=== PATIENT | male | born 1955 | race Caucasian/White ===

== ENCOUNTER 2016-09-19 08:55 | Inpatient (IN) | payer BC ==
[2016-09-19] VITALS (10 sets, daily range): BP systolic 102–130; BP diastolic 70–94
[~2016-09-19] VITALS: Ht 193 cm; Wt 98.7 kg
--- NOTE | 2016-09-19 10:34 | DIAGNOSTIC IMAGING REPORT ---
PROCEDURE: XR CHEST 1 VIEW INDICATION: SHORTNESS OF BREATH TECHNIQUE: Portable AP view 09:25 a.m. COMPARISON: None. FINDINGS: There is cardiomegaly and pulmonary vascular congestion. IMPRESSION: 1. CHF.
--- NOTE | 2016-09-19 12:16 | ED CLINICAL REPORT ---
Clinical Report - Physicians/Mid Levels [facility] [address] [place] [place] [address] 09/19/2016 9:04 Patient: ASHLEY GUTIERREZ Time Seen: 09:04; initial patient contact. Arrived- By ambulance. Historian- patient. HISTORY OF PRESENT ILLNESS Chief Complaint: PALPITATIONS. This started about 2 months ago and is still present (worse since this AM). Onset during rest. History of caffeine use prior to onset. No history of decongestants use prior to onset, cocaine use prior to onset or amphetamine use prior to onset. It was gradual in onset. Modifying factors. Not worsened by anything. Not relieved by anything. It is described as a fast heart beat. He complains of weakness. No chest pain or discomfort. He has had mild difficulty breathing. 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 (Diltiazem 5 mg x 2 and ASA 325). Similar symptoms previously: Once. Recent medical care: Not recently seen/assessed. REVIEW OF SYSTEMS No orthopnea, nausea, vomiting, calf pain or chest pain. No cough. He has had difficulty breathing. All systems otherwise negative, except as recorded above. PAST HISTORY Elevated Cholesterol. Cardioversion 2008. Hypertension. Cardiac viral infx. ADDITIONAL SURGERIES: Left knee tendon. SOCIAL HISTORY Never smoker. Occasional alcohol use. No drug use. ADDITIONAL NOTES The nursing notes have been reviewed. PHYSICAL EXAM Vital Signs: 09/19/2016 08:53 BP: 119/97. HR: 90. RR: 15. O2 saturation: 91%. Temp: 97.6 F. Pain level now: 0/10. Have been reviewed. Hypertensive. Heart rate normal. Respiratory rate normal. Temperature normal. Oxygen saturation low. Appearance: Alert. Oriented X3. No acute distress. ENT: Pharynx normal. Neck: Normal inspection. No JVD. CVS: Abnormal rhythm, which is irregularly irregular. Heart sounds normal. Rate normal. Respiratory: No respiratory distress. Breath sounds normal. Abdomen: Soft and nontender. Bowel sounds normal. Skin: Skin warm and dry. Normal skin color. Extremities: No calf tenderness. No lower extremity edema. Neuro: Oriented X 3. LABS, X-RAYS, AND EKG EKG: EKG time: (0859). Atrial fibrillation (narrow-complex) (ventricular rate 84). Normal QRS complex. Normal axis. Normal ST and T waves, QT and QTc. Prior EKG unavailable. The study has been interpreted contemporaneously by me. The study has been independently viewed by me. The EKG appears to be a good tracing. Interpretation time: 0859. Chest X-ray: Congestive heart failure present. Vascular congestion present. Cardiomegaly. No infiltrate. Views: AP. Technique: good. The X-rays were independently viewed by me and interpreted contemporaneously by me. Prior films were not available for comparison. Laboratory Tests: CBC w Diff: ([facility]: 09/19/2016 09:18) ( MsgRcvd 09/19/2016 09:25) Final results Test Result Flag Units (Reference) WHITE BLOOD COUNT 6.9 K/uL (4.5-11.5) RED BLOOD COUNT 4.97 M/uL (4.50-5.90) HEMOGLOBIN 15.3 gm/dL (13.5-17.5) HEMATOCRIT 46.6 % (41.0-53.0) MEAN CELL VOLUME 94 fL (80-100) MEAN CORPUSCULAR HGB 31 pg (26-34) MEAN CORPUSCULAR HGB CONC 33 g/dL (31-37) RED CELL DISTRIBUTION WIDTH 13.5 % (11.6-14.8) PLATELET COUNT 263 K/uL (150-400) NEUTROPHIL % 62.1 % (50-75) LYMPH % 31.0 % (25-40) MONO % 4.3 % (3-14) EOSINOPHIL % 2.0 % (0-4) BASOPHIL % 0.6 % (0-2) PT with INR: ([facility]: 09/19/2016 09:18) ( MsgRcvd 09/19/2016 09:53) Final results Test Result Flag Units (Reference) INR 1.0 (0.8-1.2) Low Intensity Therapy: INR 1.5-2.0 PT range 18.5-23.1Mod.Intensity Therapy: INR 2.0-3.0 PT range 23.1-31.5High Intensity Therapy: INR 2.5-3.5 PT range 27.4-35.5High Intensity Therapy 2: INR 3.0-4.0 PT range 31.5-39.3 APTT 32 SECONDS (24-34) D-DIMER QUANTITATIVE < 0.27 L ug/mLFEU (0.27-0.52) The primary value of this quantitative assay relates toits negative predictive value (i.e. exclusion) of pulmonaryembolism/deep vein thrombosis/DIC.Elevated levels of d-dimer may also occur with:, age, cancer, inflammation, liver disease,post-op, infection, hematoma, coronary disease, peripheralarteriopathy, bleeding disorders and thrombolytic treatment.Results should be correlated with other clinical andradiological data.Testing Methodology: Latex Immunoassay BNP: ([facility]: 09/19/2016 09:18) ( [facility]) Final results Test Result Flag Units (Reference) B-TYPE NATRIURETIC PEPTIDE 173 H pg/ml (5-100) CHEM 13 PANEL: ([facility]: 09/19/2016 09:18) ( [facility]19[facility]2016 09:45) Final results Test Result Flag Units (Reference) GLUCOSE 130 H mg/dL (70-110) BUN 15 mg/dL (7-18) CREATININE 1.0 mg/dL (0.6-1.3) Estimated GFR >60 mL/min Estimated GFR- >60 mL/min Note: Persistent reduction over 3 months in eGFR<60 mL/min/1.73 m2 defines CKD. Patients with eGFR values>=60 mL/min/1.73 m2 may also have CKD if evidence ofpersistent proteinuria. Additional information may be foundat www.[email or web address].org. SODIUM 139 mmol/L (136-145) POTASSIUM 4.6 mmol/L (3.5-5.1) CHLORIDE 105 mmol/L (98-107) CARBON DIOXIDE 23 mmol/L (21-32) CALCIUM 8.1 L mg/dL (8.5-10.1) TOTAL PROTEIN 6.2 L g/dL (6.4-8.2) ALBUMIN 3.4 g/dL (3.3-5.0) BILIRUBIN, TOTAL 2.1 H mg/dL (0.0-1.0) ALKALINE PHOSPHATASE 86 U/L (46-116) AST (SGOT) 33 U/L (15-37) ALT (SGPT) 50 U/L (12-78) CPK 258 U/L (24-260) MAGNESIUM 1.9 mg/dL (1.8-2.4) TROPONIN I <0.05 ng/mL (0.00-1.5) TROPONIN REFERENCE RANGE:<0.1 NEGATIVE0.1-1.5 INDETERMINANT>1.5 POSITIVE . PROGRESS AND PROCEDURES Disposition: Observation in Acute Care. CLINICAL IMPRESSION ,paroxysmal atrial fibrillation. The patient has one or more high risk factors and/or two or more moderate risk factors for thromboembolism. The patient is not prescribed warfarin or another FDA approved anticoagulant because Has been in sinus rhythm since cardioversion. INSTRUCTIONS Follow-up: Blood pressure screening was not performed during this visit because the patient has an active diagnosis of hypertension. (Electronically signed by Jef Camp Dr. 09/19/2016 22:00)
--- NOTE | 2016-09-19 12:16 | ED NURSING NOTES ---
Clinical Report - Nurses [facility] [address] [place] [address] 09/19/2016 9:04 Patient: ASHLEY GUTIERREZ TRIAGE Triage time 08:50. Acuity: LEVEL 3. Chief Complaint: (Mild SOB onset 2 days ago, worse today on waking @0430. He was SOB, denies any other sx.). SEPSIS SCREEN: Sepsis Screen. Negative (no infection suspected/documented). ANGELI COMA SCORE: Angeli Coma Scale: 15- eyes open spontaneously (4); best verbal response- oriented x 4 (5); best motor response- obeys commands (6). --09:[address] R.N. 08:53 09/19/16. BP: 119/97 (regular adult cuff) taken on the left arm, while lying. HR: 90 (irregularly-irregular). RR: 15. O2 saturation: 91% on room air. Temp: 97.6 F (oral). Pain level now: 0/10. --09:[address] R[address] Weight: 96.1 kg stated. Height/Length: 69 inches Per Patient. BMI: 31.3. --09:[address] R[address] Medications Metoprolol Tartrate Oral (Tablet 50 mg) 1 tablet, daily. --09:[address] R.N. Spironolactone Oral (Tablet 25 mg) 1 tablet, daily. --09:[address] R.N. Aspirin Oral (Tablet 325 mg) 1 tablet, daily. --09:[address] R.N. Simvastatin Oral (Tablet 20 mg) 1 tablet, daily. --09:[address] R.N. Lisinopril Oral (Tablet 5 mg) 1 tablet, daily. --09:[address] R.N. The following entry was struck and corrected by Roderick Street R.N., 09:15 (09/19/16) Reason for correction - other(correction). <<STRICKEN ENTRY-- Simvastatin Oral. --09:[address] R.N. --END STRIKE>> The following entry was struck and corrected by Roderick Street R.N., 09:14 (09/19/16) Reason for correction - other(correction). <<STRICKEN ENTRY-- Spironolactone Oral. --09:[address] R.N. --END STRIKE>> The following entry was struck and corrected by Roderick Street R.N., 09:14 (09/19/16) Reason for correction - other(correction). [facility]-- Metoprolol Tartrate Oral. --09:[address] R.N. --END STRIKE>> The following entry was struck and corrected by Roderick Street R.N., 09:13 (09/19/16) Reason for correction - other(correction). <<[facility]-- Lisinopril Oral. --09:[address] R.N. --END STRIKE>> The following entry was struck and corrected by Roderick Street R.N., 09:13 (09/19/16) Reason for correction - other(correction). <<[facility]-- Aspirin Oral. --09:[address] R.N. --END STRIKE>>. Allergies No Known Drug Allergy. --09:[address] R[address]N. History Arrived by EMS, and ([facility] 46). Historian: patient. 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 Diltiazem 10mg IV and NS 500ml IV by medics.). SOCIAL HX: Never smoker. Occasional alcohol use. No drug use. ABUSE ASSESSMENT: No report of abuse. --09:[address] R.N. PROBLEMS: Elevated Cholesterol. Cardioversion 2008. Hypertension. Cardiac viral infx. --09:[address] R.N. ADDITIONAL SURGERIES: Left knee tendon. --09:[address] R[address] Interventions To treatment room. --09:[address] R[address]N. PHYSICAL ASSESSMENT late entry -08:55. To room via stretcher. GENERAL / NEURO / PSYCH: Alert. Oriented X 4. Appears in no acute distress. HEENT: Pupils equal, round and reactive to light. No facial asymmetry noted. Mucous membranes are pink. RESPIRATORY: Respirations not labored. Chest nontender. Breath sounds within normal limits. ( SOB has resolved after tx in the field). CVS: Cardiac rhythm: atrial fibrillation. Capillary refill less than 2 seconds. Pulses within normal limits. GI / : Abdomen soft and nontender and normal bowel sounds. SKIN: Skin intact. Skin is warm and dry. Normal skin turgor. --09:[address] R.N. NURSING PROGRESS NOTES 08:57 09/19/2016 Site #1 started prior to arrival by EMS via IV in the right antecubital space with an 18g angiocath. Saline lock flushed with 10 mL saline. --09:[address] R.N[address] late entry -09:04. payroll processor, pulse oximeter and NIBP monitor placed on patient; redye hand- Lead II and V1; monitor alarms on. Head of bed elevated. Reassurance given. Two patient identifiers checked. Call light placed in reach. Side rails up x 1. Bed placed in lowest position. Brakes of bed on. Patient ready for evaluation- chart flagged. --09:[address] R.N. 09:45 09/19/2016 Started bag #2 1000 mL IV Fluids IV NS (Saline); bolus of 1000 mL over 1 hour(s) via site #1 via IV pump. Allergies verified and confirmed 5 rights. IV patency established. IV site checked: no pain, redness, or swelling. IV flushed thoroughly pre- and post-medication administration. --09:[address] R.N. 09:15 09/19/16. BP: 116/83. HR: 87. RR: 21. O2 saturation: 96% on nasal cannula at 3 liters/minute. Pain level now: 0/10. --10:[address] R.N. late entry -10:00. Oxygen administered by nasal cannula at 3 liters. --10:[address] R.N. 09:45 09/19/16. BP: 110/75. HR: 89. RR: 19. O2 saturation: 98% on nasal cannula at 3 liters/minute. Pain level now: 0/10. --10:[address] R.N. 10:15 09/19/16. BP: 112/81. HR: 93. RR: 18. O2 saturation: 99% on nasal cannula at 3 liters/minute. Pain level now: 0/10. --10:[address] R.N. ( Pt ambulated to with walker (due to recent left leg injury).). --10:[address] R.N. Oxygen discontinued due to patient improvement (Spo2 97% on room air after ambulation). --10:[address] R.N. 11:05 09/19/2016 IV Fluids IV NS Discontinued: bag #2 completed. Total amount infused: 1000 mL. IV patency established. IV site checked: no pain, redness, or swelling. IV flushed thoroughly. --11:[address] R.N. 11:28 09/19/16. BP: 108/83. HR: 85. RR: 20. O2 saturation: 96% on room air. Pain level now: 0/10. --11:[address] R.N. 12:22 09/19/16. BP: 114/94. HR: 130 (irregularly-irregular). RR: 20. O2 saturation: 96% on room air. Pain level now: 0/10. Additional comments: after walking to the restroom. --12:[address] R.N. 12:09 09/19/2016 Metoprolol (Metoprolol Tartrate) IVP 2.5 mg given over 2 minute(s) via site #1. Allergies verified and confirmed 5 rights. IV patency established. IV site checked: no pain, redness, or swelling. IV flushed thoroughly pre- and post-medication administration. IVP given by RN. --12:[address] R.N. 12:29 09/19/16. ( H&P given to pt to fill out.). --12:29 Linda Rodriguez 12:45 09/19/16. BP: 111/70. HR: 109. RR: 21. O2 saturation: 97% on room air. Pain level now: 0/10. --13:[address] R.N. 13:15 09/19/16. BP: 113/82. HR: 112. RR: 19. O2 saturation: 97% on room air. Pain level now: 0/10. --13:[address] R.N. 13:45 09/19/16. BP: 110/74. HR: 106. RR: 17. O2 saturation: 97% on room air. Pain level now: 0/10. --13:[address] R.N. DISPOSITION / DISCHARGE ( Called ICU @1315 and 1400 to try to give report.). --14:[address] R.N. late entry -14:40. Departure time: 1435. Cardiac rhythm: atrial fibrillation. Condition at departure: improved and stable. Admitted to the Critical Care Unit (304). Report was given to a nurse via a phone call. Report included patient's care, treatment, medications, reviewed medication reconcilliation, and condition (including any recent changes or anticipated changes). All questions were answered. Report was acknowledged. ([id number]). --15:[address] R.N. 14:25 09/19/16. BP: 110/76. HR: 104. RR: 18. O2 saturation: 97% on room air. Temp: 97.6 F. Pain level now: 0/10. --15:[address] R.N. Locked/Released at 09/19/2016 15:[address] R.N.
--- NOTE | 2016-09-19 12:16 | ED ORDER SUMMARY ---
..... Patient: ASHLEY GUTIERREZ OrderSheet [facility] VisitID: [id number] [place] [address] 60y, M Registration Date/Time: 09/19/2016 ORDER SHEET Weight: 96.1 kg (stated) Allergies: No Known Drug Allergy GENERAL ORDERS: Chest 1V Urgent (09:09/19/2016 JSimbeck R.N. per protocol) (Ack 9:13 TBergley) (9:47 JSimbeck R.N.) Powerhouse Mechanic Apprentice (Continuous) (:09/19/2016 JSimbeck R.N. per protocol) (9:11 JSimbeck R.N.) Cardiac Panel Stat (:09/19/2016 JSimbeck R.N. per protocol) (Ack 9:13 TBergley) (9:19 TBergley) Oxygen (2 L/min) (NC) (:09/19/2016 JSimbeck R.N. per protocol) (9:11 JSimbeck R.N.) Pulse oximeter (:09/19/2016 JSimbeck R.N. per protocol) (9:11 JSimbeck R.N.) EKG - ER Stat (:09/19/2016 JSimbeck R.N. per protocol) (9:11 JSimbeck R.N.) D-Dimer Urgent (09:09/19/2016 López Howard) (Ack 9:35 TBergley) (9:35 TBergley) PT with INR Urgent (09:09/19/2016 López Howard) (Ack 9:35 TBergley) (9:35 TBergley) PTT Urgent (:09/19/2016 López Howard) (Ack 9:35 TBergley) (9:35 TBergley) BNP Urgent (:09/19/2016 López Howard) (Ack 9:35 TBergley) (9:35 TBergley) TSH Urgent (12:09/19/2016 López Howard) (12:07 JSimbeck R.N.) MEDICATION ORDERS: IV FLUIDS: IV Saline Lock (09:11 09/19/2016 Paige Asif per protocol) (9:12 Paige Asif) IV NS : initial bolus none -, then 1000 mL/hr for X1 (NOW) (09:37 09/19/2016 López Howard) (9:46 Paige Asif) Metoprolol IV 5 mg (HIGH ALERT MEDICATION, NOW) (12:05 09/19/2016 López Howard) (Cancelled: Physician Order12:07 López Howard) Metoprolol IV 2.5 mg (HIGH ALERT MEDICATION, NOW) (12:07 09/19/2016 López Howard) (12:26 Paige Asif) ORDER SHEET NOTES: [Electronically signed by Roderick Street R.N. (15:48 09/19/2016)] [Electronically signed by Jef Camp Dr. (22:00 09/19/2016)] [Electronically locked/signed by Roderick Street R.N. (15:48 09/19/2016)]
--- NOTE | 2016-09-19 12:16 | ED NURSING NOTES ---
Clinical Report - Nurses [facility] [address] [place] [address] 09/19/2016 9:04 Patient: ASHLEY GUTIERREZ TRIAGE Triage time 08:50. Acuity: LEVEL 3. Chief Complaint: (Mild SOB onset 2 days ago, worse today on waking @0430. He was SOB, denies any other sx.). SEPSIS SCREEN: Sepsis Screen. Negative (no infection suspected/documented). ANGELI COMA SCORE: Angeli Coma Scale: 15- eyes open spontaneously (4); best verbal response- oriented x 4 (5); best motor response- obeys commands (6). --09:[address] R.N. 08:53 09/19/16. BP: 119/97 (regular adult cuff) taken on the left arm, while lying. HR: 90 (irregularly-irregular). RR: 15. O2 saturation: 91% on room air. Temp: 97.6 F (oral). Pain level now: 0/10. --09:[address] R[address]N. Weight: 96.1 kg stated. Height/Length: 69 inches Per Patient. BMI: 31.3. --09:[address] R.N[address] Medications Metoprolol Tartrate Oral (Tablet 50 mg) 1 tablet, daily. --09:[address] R.N. Spironolactone Oral (Tablet 25 mg) 1 tablet, daily. --09:[address] R.N. Aspirin Oral (Tablet 325 mg) 1 tablet, daily. --09:[address] R.N. Simvastatin Oral (Tablet 20 mg) 1 tablet, daily. --09:[address] R.N. Lisinopril Oral (Tablet 5 mg) 1 tablet, daily. --09:[address] R.N. The following entry was struck and corrected by Roderick Street R.N., 09:15 (09/19/16) Reason for correction - other(correction). <<STRICKEN ENTRY-- Simvastatin Oral. --09:[address] R.N. --END STRIKE>> The following entry was struck and corrected by Roderick Street R.N., 09:14 (09/19/16) Reason for correction - other(correction). <<STRICKEN ENTRY-- Spironolactone Oral. --09:[address] R.N. --END STRIKE>> The following entry was struck and corrected by Roderick Street R.N., 09:14 (09/19/16) Reason for correction - other(correction). [facility]-- Metoprolol Tartrate Oral. --09:[address] R.N. --END STRIKE>> The following entry was struck and corrected by Roderick Street R.N., 09:13 (09/19/16) Reason for correction - other(correction). <<[facility] ENTRY-- Lisinopril Oral. --09:[address] R.N. --END STRIKE>> The following entry was struck and corrected by Roderick Street R.N., 09:13 (09/19/16) Reason for correction - other(correction). <<[facility]-- Aspirin Oral. --09:[address] R.N. --END STRIKE>>. Allergies No Known Drug Allergy. --09:[address] R.N. History Arrived by EMS, and ([facility] 46). Historian: patient. 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 Diltiazem 10mg IV and NS 500ml IV by medics.). SOCIAL HX: Never smoker. Occasional alcohol use. No drug use. ABUSE ASSESSMENT: No report of abuse. --09:[address] R.N. PROBLEMS: Elevated Cholesterol. Cardioversion 2008. Hypertension. Cardiac viral infx. --09:[address] R.N. ADDITIONAL SURGERIES: Left knee tendon. --09:[address] R[address] Interventions To treatment room. --09:[address] R[address]N. PHYSICAL ASSESSMENT late entry -08:55. To room via stretcher. GENERAL / NEURO / PSYCH: Alert. Oriented X 4. Appears in no acute distress. HEENT: Pupils equal, round and reactive to light. No facial asymmetry noted. Mucous membranes are pink. RESPIRATORY: Respirations not labored. Chest nontender. Breath sounds within normal limits. ( SOB has resolved after tx in the field). CVS: Cardiac rhythm: atrial fibrillation. Capillary refill less than 2 seconds. Pulses within normal limits. GI / : Abdomen soft and nontender and normal bowel sounds. SKIN: Skin intact. Skin is warm and dry. Normal skin turgor. --09:[address] R.N. NURSING PROGRESS NOTES 08:57 09/19/2016 Site #1 started prior to arrival by EMS via IV in the right antecubital space with an 18g angiocath. Saline lock flushed with 10 mL saline. --09:[address] R.N. late entry -09:04. radiation physicist, pulse oximeter and NIBP monitor placed on patient; special education case manager- Lead II and V1; monitor alarms on. Head of bed elevated. Reassurance given. Two patient identifiers checked. Call light placed in reach. Side rails up x 1. Bed placed in lowest position. Brakes of bed on. Patient ready for evaluation- chart flagged. --09:[address] R[address]N. 09:45 09/19/2016 Started bag #2 1000 mL IV Fluids IV NS (Saline); bolus of 1000 mL over 1 hour(s) via site #1 via IV pump. Allergies verified and confirmed 5 rights. IV patency established. IV site checked: no pain, redness, or swelling. IV flushed thoroughly pre- and post-medication administration. --09:[address] R.N. 09:15 09/19/16. BP: 116/83. HR: 87. RR: 21. O2 saturation: 96% on nasal cannula at 3 liters/minute. Pain level now: 0/10. --10:[address] R.N. late entry -10:00. Oxygen administered by nasal cannula at 3 liters. --10:[address] R.N. 09:45 09/19/16. BP: 110/75. HR: 89. RR: 19. O2 saturation: 98% on nasal cannula at 3 liters/minute. Pain level now: 0/10. --10:[address] R[address]N. 10:15 09/19/16. BP: 112/81. HR: 93. RR: 18. O2 saturation: 99% on nasal cannula at 3 liters/minute. Pain level now: 0/10. --10:[address] R[address]N. ( Pt ambulated to with walker (due to recent left leg injury).). --10:[address] R[address]N. Oxygen discontinued due to patient improvement (Spo2 97% on room air after ambulation). --10:[address] R.N. 11:05 09/19/2016 IV Fluids IV NS Discontinued: bag #2 completed. Total amount infused: 1000 mL. IV patency established. IV site checked: no pain, redness, or swelling. IV flushed thoroughly. --11:[address] R[address]N. 11:28 09/19/16. BP: 108/83. HR: 85. RR: 20. O2 saturation: 96% on room air. Pain level now: 0/10. --11:[address] R[address]N. 12:22 09/19/16. BP: 114/94. HR: 130 (irregularly-irregular). RR: 20. O2 saturation: 96% on room air. Pain level now: 0/10. Additional comments: after walking to the restroom. --12:[address] R[address]N. 12:09 09/19/2016 Metoprolol (Metoprolol Tartrate) IVP 2.5 mg given over 2 minute(s) via site #1. Allergies verified and confirmed 5 rights. IV patency established. IV site checked: no pain, redness, or swelling. IV flushed thoroughly pre- and post-medication administration. IVP given by RN. --12:[address] R[address]N. 12:29 09/19/16. ( H&P given to pt to fill out.). --12:29 Linda Rodriguez 12:45 09/19/16. BP: 111/70. HR: 109. RR: 21. O2 saturation: 97% on room air. Pain level now: 0/10. --13:[address] R.N. 13:15 09/19/16. BP: 113/82. HR: 112. RR: 19. O2 saturation: 97% on room air. Pain level now: 0/10. --13:[address] R.N. 13:45 09/19/16. BP: 110/74. HR: 106. RR: 17. O2 saturation: 97% on room air. Pain level now: 0/10. --13:[address] R.N. DISPOSITION / DISCHARGE ( Called ICU @1315 and 1400 to try to give report.). --14:11 [address] R.N. late entry -14:40. Departure time: 1435. Cardiac rhythm: atrial fibrillation. Condition at departure: improved and stable. Admitted to the Critical Care Unit (304). Report was given to a nurse via a phone call. Report included patient's care, treatment, medications, reviewed medication reconcilliation, and condition (including any recent changes or anticipated changes). All questions were answered. Report was acknowledged. ([id number]). --15:[address] R.N. 14:25 09/19/16. BP: 110/76. HR: 104. RR: 18. O2 saturation: 97% on room air. Temp: 97.6 F. Pain level now: 0/10. --15:[address] R.N. Locked/Released at 09/19/2016 15:[address] R[address]
--- NOTE | 2016-09-19 12:16 | ED ORDER SUMMARY ---
..... Patient: ASHLEY GUTIERREZ OrderSheet [facility] VisitID: [id number] [place] [address] 60y, M Registration Date/Time: 09/19/2016 ORDER SHEET Weight: 96.1 kg (stated) Allergies: No Known Drug Allergy GENERAL ORDERS: Chest 1V Urgent (09:09/19/2016 JSimbeck R.N. per protocol) (Ack 9:13 TBergley) (9:47 JSimbeck R.N.) Bit Tripoler (Continuous) (:09/19/2016 JSimbeck R.N. per protocol) (9:11 JSimbeck R.N.) Cardiac Panel Stat (:09/19/2016 JSimbeck R.N. per protocol) (Ack 9:13 TBergley) (9:19 TBergley) Oxygen (2 L/min) (NC) (:09/19/2016 JSimbeck R.N. per protocol) (9:11 JSimbeck R.N.) Pulse oximeter (:09/19/2016 JSimbeck R.N. per protocol) (9:11 JSimbeck R.N.) EKG - ER Stat (:09/19/2016 JSimbeck R.N. per protocol) (9:11 JSimbeck R.N.) D-Dimer Urgent (09:09/19/2016 López Howard) (Ack 9:35 TBergley) (9:35 TBergley) PT with INR Urgent (09:09/19/2016 López Howard) (Ack 9:35 TBergley) (9:35 TBergley) PTT Urgent (:09/19/2016 López Howard) (Ack 9:35 TBergley) (9:35 TBergley) BNP Urgent (:09/19/2016 López Howard) (Ack 9:35 TBergley) (9:35 TBergley) TSH Urgent (12:09/19/2016 López Howard) (12:07 JSimbeck R.N.) MEDICATION ORDERS: IV FLUIDS: IV Saline Lock (09:11 09/19/2016 Paige Asif per protocol) (9:12 Paige Asif) IV NS : initial bolus none -, then 1000 mL/hr for X1 (NOW) (09:37 09/19/2016 López Howard) (9:46 Paige Asif) Metoprolol IV 5 mg (HIGH ALERT MEDICATION, NOW) (12:05 09/19/2016 López Howard) (Cancelled: Physician Order12:07 López Howard) Metoprolol IV 2.5 mg (HIGH ALERT MEDICATION, NOW) (12:07 09/19/2016 López Howard) (12:26 Paige Asif) ORDER SHEET NOTES: [Electronically signed by Roderick Street R.N. (15:48 09/19/2016)] [Electronically signed by Jef Camp Dr. (22:00 09/19/2016)] [Electronically locked/signed by Roderick Street R.N. (15:48 09/19/2016)]
--- NOTE | 2016-09-19 12:16 | ED CLINICAL REPORT ---
Clinical Report - Physicians/Mid Levels [facility] [address] [place] [address] 09/19/2016 9:04 Patient: ASHLEY GUTIERREZ Time Seen: 09:04; initial patient contact. Arrived- By ambulance. Historian- patient. HISTORY OF PRESENT ILLNESS Chief Complaint: PALPITATIONS. This started about 2 months ago and is still present (worse since this AM). Onset during rest. History of caffeine use prior to onset. No history of decongestants use prior to onset, cocaine use prior to onset or amphetamine use prior to onset. It was gradual in onset. Modifying factors. Not worsened by anything. Not relieved by anything. It is described as a fast heart beat. He complains of weakness. No chest pain or discomfort. He has had mild difficulty breathing. 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 (Diltiazem 5 mg x 2 and ASA 325). Similar symptoms previously: Once. Recent medical care: Not recently seen/assessed. REVIEW OF SYSTEMS No orthopnea, nausea, vomiting, calf pain or chest pain. No cough. He has had difficulty breathing. All systems otherwise negative, except as recorded above. PAST HISTORY Elevated Cholesterol. Cardioversion 2008. Hypertension. Cardiac viral infx. ADDITIONAL SURGERIES: Left knee tendon. SOCIAL HISTORY Never smoker. Occasional alcohol use. No drug use. ADDITIONAL NOTES The nursing notes have been reviewed. PHYSICAL EXAM Vital Signs: 09/19/2016 08:53 BP: 119/97. HR: 90. RR: 15. O2 saturation: 91%. Temp: 97.6 F. Pain level now: 0/10. Have been reviewed. Hypertensive. Heart rate normal. Respiratory rate normal. Temperature normal. Oxygen saturation low. Appearance: Alert. Oriented X3. No acute distress. ENT: Pharynx normal. Neck: Normal inspection. No JVD. CVS: Abnormal rhythm, which is irregularly irregular. Heart sounds normal. Rate normal. Respiratory: No respiratory distress. Breath sounds normal. Abdomen: Soft and nontender. Bowel sounds normal. Skin: Skin warm and dry. Normal skin color. Extremities: No calf tenderness. No lower extremity edema. Neuro: Oriented X 3. LABS, X-RAYS, AND EKG EKG: EKG time: (0859). Atrial fibrillation (narrow-complex) (ventricular rate 84). Normal QRS complex. Normal axis. Normal ST and T waves, QT and QTc. Prior EKG unavailable. The study has been interpreted contemporaneously by me. The study has been independently viewed by me. The EKG appears to be a good tracing. Interpretation time: 0859. Chest X-ray: Congestive heart failure present. Vascular congestion present. Cardiomegaly. No infiltrate. Views: AP. Technique: good. The X-rays were independently viewed by me and interpreted contemporaneously by me. Prior films were not available for comparison. Laboratory Tests: CBC w Diff: ([facility]: 09/19/2016 09:18) ( MsgRcvd 09/19/2016 09:25) Final results Test Result Flag Units (Reference) WHITE BLOOD COUNT 6.9 K/uL (4.5-11.5) RED BLOOD COUNT 4.97 M/uL (4.50-5.90) HEMOGLOBIN 15.3 gm/dL (13.5-17.5) HEMATOCRIT 46.6 % (41.0-53.0) MEAN CELL VOLUME 94 fL (80-100) MEAN CORPUSCULAR HGB 31 pg (26-34) MEAN CORPUSCULAR HGB CONC 33 g/dL (31-37) RED CELL DISTRIBUTION WIDTH 13.5 % (11.6-14.8) PLATELET COUNT 263 K/uL (150-400) NEUTROPHIL % 62.1 % (50-75) LYMPH % 31.0 % (25-40) MONO % 4.3 % (3-14) EOSINOPHIL % 2.0 % (0-4) BASOPHIL % 0.6 % (0-2) PT with INR: ([facility]: 09/19/2016 09:18) ( MsgRcvd 09/19/2016 09:53) Final results Test Result Flag Units (Reference) INR 1.0 (0.8-1.2) Low Intensity Therapy: INR 1.5-2.0 PT range 18.5-23.1Mod.Intensity Therapy: INR 2.0-3.0 PT range 23.1-31.5High Intensity Therapy: INR 2.5-3.5 PT range 27.4-35.5High Intensity Therapy 2: INR 3.0-4.0 PT range 31.5-39.3 APTT 32 SECONDS (24-34) D-DIMER QUANTITATIVE < 0.27 L ug/mLFEU (0.27-0.52) The primary value of this quantitative assay relates toits negative predictive value (i.e. exclusion) of pulmonaryembolism/deep vein thrombosis/DIC.Elevated levels of d-dimer may also occur with:, age, cancer, inflammation, liver disease,post-op, infection, hematoma, coronary disease, peripheralarteriopathy, bleeding disorders and thrombolytic treatment.Results should be correlated with other clinical andradiological data.Testing Methodology: Latex Immunoassay BNP: ([facility]: 09/19/2016 09:18) ( [facility] [place]/19/[place] 10:00) Final results Test Result Flag Units (Reference) B-TYPE NATRIURETIC PEPTIDE 173 H pg/ml (5-100) CHEM 13 PANEL: ([facility]: 09/19/2016 09:18) ( [facility] 09/19/2016 09:45) Final results Test Result Flag Units (Reference) GLUCOSE 130 H mg/dL (70-110) BUN 15 mg/dL (7-18) CREATININE 1.0 mg/dL (0.6-1.3) Estimated GFR >60 mL/min Estimated GFR- >60 mL/min Note: Persistent reduction over 3 months in eGFR<60 mL/min/1.73 m2 defines CKD. Patients with eGFR values>=60 mL/min/1.73 m2 may also have CKD if evidence ofpersistent proteinuria. Additional information may be foundat www.kidney.org. SODIUM 139 mmol/L (136-145) POTASSIUM 4.6 mmol/L (3.5-5.1) CHLORIDE 105 mmol/L (98-107) CARBON DIOXIDE 23 mmol/L (21-32) CALCIUM 8.1 L mg/dL (8.5-10.1) TOTAL PROTEIN 6.2 L g/dL (6.4-8.2) ALBUMIN 3.4 g/dL (3.3-5.0) BILIRUBIN, TOTAL 2.1 H mg/dL (0.0-1.0) ALKALINE PHOSPHATASE 86 U/L (46-116) AST (SGOT) 33 U/L (15-37) ALT (SGPT) 50 U/L (12-78) CPK 258 U/L (24-260) MAGNESIUM 1.9 mg/dL (1.8-2.4) TROPONIN I <0.05 ng/mL (0.00-1.5) TROPONIN REFERENCE RANGE:<0.1 NEGATIVE0.1-1.5 INDETERMINANT>1.5 POSITIVE . PROGRESS AND PROCEDURES Disposition: Observation in Acute Care. CLINICAL IMPRESSION ,paroxysmal atrial fibrillation. The patient has one or more high risk factors and/or two or more moderate risk factors for thromboembolism. The patient is not prescribed warfarin or another FDA approved anticoagulant because Has been in sinus rhythm since cardioversion. INSTRUCTIONS Follow-up: Blood pressure screening was not performed during this visit because the patient has an active diagnosis of hypertension. (Electronically signed by Jef Camp Dr. 09/19/2016 22:00)
--- NOTE | 2016-09-19 13:13 | Progress Note ---
Subjective General Admission History and Physical Examination Patient Name: Hugh Cerrato Admission Date: September 19, 2016 Primary Care Provider: Dr. Hannah Attending Physician: Alex Kam MD Admitting Physician: Alex Kam M.D. Code Status: FULL CODE Room: [facility] Status: Inpatient, CCU SUBJECTIVE Historian: Patient Reliability: Good Chief Complaint: Shortness of breath, palpitations History of Present Illness: The patient is a 60-year-old white male with a significant past medical history of viral cardiomyopathy, paroxysmal atrial fibrillation, hypertension, hyperlipidemia, who presented to [facility] emergency department on the day of admission secondary to complaints of shortness of breath, chest pain, and palpitations. [facility] ER evaluation was consistent with atrial fibrillation with rapid ventricular response, questionable early CHF. Secondary to the above, the patient was admitted by Alex Kam M.D. for further evaluation and treatment. PAST MEDICAL HISTORY Illnesses: 1. 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 Hypertension 3. Hyperlipidemia Allergies: 1. No Known Drug Allergies Medications: 1. Lopressor dosage unknown 2. Lisinopril dosage unknown 3. Spironolactone dosage unknown 4. Simvastatin dosage unknown 5. Aspirin 325 mg by mouth daily Surgery: . 2016, knee surgery Injuries: 1. Fractured wrist 2. Quadricep tendon tear Hospitalizations: 1. For above surgery and medical problems FAMILY HISTORY Parents: 1. Father, , 64, myocardial infarction, 2. Mother, , 82, hepatic carcinoma Siblings: 1. Male, living, 60, heart disease 2. Male, living, 57, back injury Children: 1. None Other significant family history: None SOCIAL HISTORY 1. Marital Status: Single 2. Religious: None 3. Education: College, 4 years, degree in education 4. 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 Occupational health exposures: None HABITS 1. Tobacco: None 2. Drugs: None 3. Alcohol: 2 ounces per week 4. Caffeine: None HEALTH SUPERVISION Item/Test 1. Vision screen: No recent 2. Cholesterol Profile: 2015 3. PSA: Unknown 4. ZBIGNIEW: Unknown 5. FOBT: Unknown 6. Blood Glucose: 2016 7. Colonoscopy: 2007 8. History and physical exam: 2015 9. Audiogram: Unknown 10. Mammogram: Not applicable 11. Pap/pelvic exam: Not applicable IMMUNIZATIONS: 1. Pneumococcal: No previous 2. Influenza: 2016 3. Tetanus: 2012 ADVANCED DIRECTIVES: 1. Living well: No 2. POLST: No 3. Code Status: FULL CODE 4. 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 Donor card: No REVIEW OF SYSTEMS Remarkable for those things stated in the history of present illness and past medical history. Seventeen point review of system completed with the following notable findings: General: Knee pain Cardiovascular: Palpitations Genitourinary: Erectile dysfunction Physical Exam General Appearance Alert, Oriented X3, Cooperative, No acute distress HEENT Atraumatic, PERRLA, EOMI, Moist mucous membranes Lungs Clear to auscultation, Normal air movement Neck Supple, No JVD, No masses, 2+ carotid pulse wo bruit Cardiovascular Normal S1 and S2, Irregular rhythm, tachycardia Abdomen Normal bowel sounds, Soft, No tenderness, No guarding, No rebound Extremities No cyanosis, No clubbing, No edema Neurological Cranial nerves intact, Strength 5/5 x4 ext's, No lateralizing signs Psych/Mental Status Mental status normal, Mood normal LAB Results Laboratory Tests 09/19 09/19 09/19 0918 0918 0918 Chemistry Plasma Sodium (136 - 145 mmol/L) 139 Plasma Potassium (3.5 - 5.1 mmol/L) 4.6 Plasma Chloride (98 - 107 mmol/L) 105 CO2 (Enzymatic) (21 - 32 mmol/L) 23 BUN (7 - 18 mg/dL) 15 Creatinine (0.6 - 1.3 mg/dL) 1.0 Est GFR ( Amer) (mL/min) >60 Est GFR (Non-Af Amer) (mL/min) >60 Glucose (70 - 110 mg/dL) 130 Plasma Calcium (8.5 - 10.1 mg/dL) 8.1 Plasma Magnesium (1.8 - 2.4 mg/dL) 1.9 Total Bilirubin (0.0 - 1.0 mg/dL) 2.1 AST (15 - 37 U/L) 33 ALT (12 - 78 U/L) 50 Alkaline Phosphatase (46 - 116 U/L) 86 Creatine Kinase (24 - 260 U/L) 258 Troponin (0.00 - 1.5 ng/mL) <0.05 B-Natriuretic Peptide (5 - 100 pg/ml) 173 Total Protein (6.4 - 8.2 g/dL) 6.2 Albumin (3.3 - 5.0 g/dL) 3.4 TSH 3rd Generation Pending Coagulation INR (0.8 - 1.2) 1.0 APTT (24 - 34 SECONDS) 32 D-Dimer, Quantitative (0.27 - 0.52 ug/mLFEU) < 0.27 Hematology WBC (4.5 - 11.5 K/uL) 6.9 RBC (4.50 - 5.90 M/uL) 4.97 Hgb (13.5 - 17.5 gm/dL) 15.3 Hct (41.0 - 53.0 %) 46.6 MCV (80 - 100 fL) 94 MCH (26 - 34 pg) 31 RDW (11.6 - 14.8 %) 13.5 Neut % (Auto) (50 - 75 %) 62.1 Lymph % (Auto) (25 - 40 %) 31.0 Cheyenne % (Auto) (3 - 14 %) 4.3 Eos % (Auto) (0 - 4 %) 2.0 Baso % (Auto) (0 - 2 %) 0.6 Plt Count, EDTA (150 - 400 K/uL) 263 PUBS MCHC (31 - 37 g/dL) 33 Assessment and Plan Problem List 1. Atrial fibrillation with rapid ventricular response Plan -patient presents with findings of atrial fibrillation with rapid ventricular response -previous history of CHF/viral cardiomyopathy -Lopressor 50 mg by mouth every 8 hours -IV Lopressor 5 mg by mouth every 3 hours as needed for rate control -monitor -consider echocardiogram versus outpatient follow-up with cardiology -patient's chads score greater than 2. Begin anticoagulation with Eliquis -benefits and risks of anticoagulation discussed with patient prior to initiation of medication. 2. Hypertension Status Chronic Onset Date Unknown Plan -well-controlled -monitor -continue outpatient medications as appropriate -low salt diet 3. Viral cardiomyopathy Status Chronic Onset Date 09/13 Plan -patient with history of viral cardiomyopathy -mildly depressed ejection fraction-50% -monitor -no overt signs of CHF at this time 4. Hyperlipidemia Status Chronic Onset Date Unknown Plan -history of hyperlipidemia -continue statin drug-Lipitor 40 mg by mouth daily -outpatient follow-up with PCP -low fat diet/low cholesterol diet Current status: Fair, unstable Anticipated discharge date: Anticipated discharge in 1-2 Anticipated discharge placement: Home Patient care time: Time in chart review, patient interview, physical exam, CPOE, and care documentation: 70 mins Visit to patient today: 2 Complexity of care: High DVT prophylaxis: Radha
--- NOTE | 2016-09-19 22:00 | ED DISCHARGE INSTRUCTIONS ---
Patient: ASHLEY GUTIERREZ General Instructions [facility] VisitID: [id number] [address] [place] [address] 60y, M Registration Date/Time: 09/19/2016 ,paroxysmal atrial fibrillation. The patient has one or more high risk factors and/or two or more moderate risk factors for thromboembolism. The patient is not prescribed warfarin or another FDA approved anticoagulant because Has been in sinus rhythm since cardioversion. INSTRUCTIONS Follow-up: Blood pressure screening was not performed during this visit because the patient has an active diagnosis of hypertension. (Electronically signed by Jef Camp Dr. 09/19/2016 22:00)
--- NOTE | 2016-09-19 22:00 | ED MED RECONCILIATION SUMMARY ---
Patient: ASHLEY GUTIERREZ Medication Reconciliation Report [facility] VisitID: [id number] [address] [place] [address] 60y, M Registration Date/Time: 09/19/2016 Weight: 96.1 kg Height/Length: 69 in. BMI: 31.3 ALLERGIES: No Known Drug Allergy The patient's Home Medications are listed below: THE FOLLOWING MEDICATIONS NEED TO BE RECONCILED: Aspirin Oral (325 mg) 1 tablet, daily Lisinopril Oral (5 mg) 1 tablet, daily Metoprolol Tartrate Oral (50 mg) 1 tablet, daily Simvastatin Oral (20 mg) 1 tablet, daily Spironolactone Oral (25 mg) 1 tablet, daily The source(s) of the original Home Medication information: Not obtained. The following Medications were given to the patient in the Emergency Department: IV NS IV Fluids bolus 1000 mL over 1 hour(s), administered: 09/19/2016 9:45:00 AM Metoprolol [IVP] IVP 2.5 mg, administered: 09/19/2016 12:09:00 PM The following Medications were prescribed to the patient: None.
--- NOTE | 2016-09-19 22:00 | ED MAR SUMMARY ---
..... Medication Administration Record [facility] [address] [place] [address] Patient: ASHLEY GUTIERREZ Visit ID: [id number] 60y, M Weight: 96.1 kg Height/Length: 69 in BMI: 31.3 ALLERGIES: No Known Drug Allergy Start 09:45 09/19/[address] R.N., Stop 11:05 09/19/[address] R.N. Medication Administered: IV NS (SALINE), Dose: IV Fluids, Bolus: 1000 mL over 1 hour(s), Dispensed: 1000 mL bag, Site: #1 right AC. Medication Ordered: IV NS : initial bolus none -, then 1000 mL/hr for X1 (NOW). Given 12:09 09/19/[address] R.N. Medication Administered: METOPROLOL [IVP] (METOPROLOL TARTRATE), Dose: 2.5 mg IVP over 2 minute(s), Site: #1 right AC. Medication Ordered: Metoprolol IV 2.5 mg (HIGH ALERT MEDICATION, NOW).
--- NOTE | 2016-09-19 22:00 | ED DISCHARGE INSTRUCTIONS ---
Patient: ASHLEY GUTIERREZ General Instructions [facility] VisitID: [id number] [address] [place] [address] 60y, M Registration Date/Time: 09/19/2016 ,paroxysmal atrial fibrillation. The patient has one or more high risk factors and/or two or more moderate risk factors for thromboembolism. The patient is not prescribed warfarin or another FDA approved anticoagulant because Has been in sinus rhythm since cardioversion. INSTRUCTIONS Follow-up: Blood pressure screening was not performed during this visit because the patient has an active diagnosis of hypertension. (Electronically signed by Jef Camp Dr. 09/19/2016 22:00)
--- NOTE | 2016-09-19 22:00 | ED MED RECONCILIATION SUMMARY ---
Patient: ASHLEY GUTIERREZ Medication Reconciliation Report [facility] VisitID: [id number] [address] [place] [address] 60y, M Registration Date/Time: 09/19/2016 Weight: 96.1 kg Height/Length: 69 in. BMI: 31.3 ALLERGIES: No Known Drug Allergy The patient's Home Medications are listed below: THE FOLLOWING MEDICATIONS NEED TO BE RECONCILED: Aspirin Oral (325 mg) 1 tablet, daily Lisinopril Oral (5 mg) 1 tablet, daily Metoprolol Tartrate Oral (50 mg) 1 tablet, daily Simvastatin Oral (20 mg) 1 tablet, daily Spironolactone Oral (25 mg) 1 tablet, daily The source(s) of the original Home Medication information: Not obtained. The following Medications were given to the patient in the Emergency Department: IV NS IV Fluids bolus 1000 mL over 1 hour(s), administered: 09/19/2016 9:45:00 AM Metoprolol [IVP] IVP 2.5 mg, administered: 09/19/2016 12:09:00 PM The following Medications were prescribed to the patient: None.
--- NOTE | 2016-09-19 22:00 | ED MAR SUMMARY ---
..... Medication Administration Record [facility] [address] [place] [address] Patient: ASHLEY GUTIERREZ Visit ID: [id number] 60y, M Weight: 96.1 kg Height/Length: 69 in BMI: 31.3 ALLERGIES: No Known Drug Allergy Start 09:45 09/19/[address] R.N., Stop 11:05 09/19/[address] R.N. Medication Administered: IV NS (SALINE), Dose: IV Fluids, Bolus: 1000 mL over 1 hour(s), Dispensed: 1000 mL bag, Site: #1 right AC. Medication Ordered: IV NS : initial bolus none -, then 1000 mL/hr for X1 (NOW). Given 12:09 09/19/[address] R.N. Medication Administered: METOPROLOL [IVP] (METOPROLOL TARTRATE), Dose: 2.5 mg IVP over 2 minute(s), Site: #1 right AC. Medication Ordered: Metoprolol IV 2.5 mg (HIGH ALERT MEDICATION, NOW).
[2016-09-19] MEDS ORDERED: ASPIRIN325 MG PO (22:04)
[2016-09-19] MEDS ORDERED: ZESTRIL5 MG PO (22:05)
[2016-09-19] MEDS ORDERED: LOPRESSOR50 MG PO (22:05)
[2016-09-19] MEDS ORDERED: SIMVASTATIN20 MG PO (22:05)
[2016-09-19] MEDS ORDERED: ALDACTONE25 MG PO (22:06)
[2016-09-20] VITALS (23 sets, daily range): BP systolic 98–126; BP diastolic 52–91
--- NOTE | 2016-09-20 07:19 | Progress Note ---
Subjective General Note Date: September 20, 2016 Admission Date: September 19, 2016 Hospital Day: 2 PCP: Dr. Hannah Status: Inpatient, CCU Advanced Directive: FULL CODE Room: 304 Admission History: The patient is a 60-year-old white male with a significant past medical history of viral cardiomyopathy, paroxysmal atrial fibrillation, hypertension, hyperlipidemia, who presented to [facility] emergency department on the day of admission secondary to complaints of shortness of breath, chest pain, and palpitations. [facility] ER evaluation was consistent with atrial fibrillation with rapid ventricular response, questionable early CHF. Secondary to the above, the patient was admitted by Alex Kam M.D. for further evaluation and treatment. For other history present illness, past medical history, family history, social history, review of systems, and admission physical examination please see the patient's history and physical examination and ER visit note in the patient's medical record. Subjective: The patient states he is doing well today. Complains of mild cough. Denies fever or chills or productivity to cough. Shortness of breath with exertion noted Patient requests: Cough medication Medications and Allergies Medications Current Medications Sig/Zac Start time Last Medication Dose Route Stop Time Status Admin Lisinopril 5 MG DAILY 09/20 0900 AC PO Spironolactone 25 MG DAILY 09/20 0900 AC PO Apixaban 5 MG BID 09/19 2100 AC 09/19 PO 2153 Metoprolol Tartrate 50 MG Q8HR 09/19 1400 AC 09/20 PO 0550 Acetaminophen 650 MG Q4H PRN 09/19 1315 AC PO Al Hydrox/Mg Hydrox/ 15 ML Q1H PRN 09/19 1315 AC Simethicone PO Atropine Sulfate 0.5 MG Q3MIN PRN 09/19 1315 AC IV Lidocaine HCl See Dose ONCE PRN 09/19 1315 AC Insts (1) IV Magnesium Hydroxide 10 ML DAILY PRN 09/19 1315 AC PO Metoprolol Tartrate 5 MG Q3H PRN 09/19 1315 AC 09/20 IV 0249 Morphine Sulfate 2 MG Q3M PRN 09/19 1315 AC IV Nitroglycerin 0.4 MG Q5M PRN 09/19 1315 AC SL Ondansetron HCl 4 MG Q6H PRN 09/19 1315 AC IV Pantoprazole Sodium 40 MG DAILY@0600 09/19 1315 AC 09/20 Sesquihydrate PO 0550 Sodium Chloride 1,000 ML ASDIRECTED 09/19 1315 AC 09/19 IV 1501 Dose Instructions: (1)Lidocaine HCl: 1.5 MG/KG Allergies Coded Allergies: No Known Drug Allergy (09/19/16) Reconcile Medications Scheduled Medications Aspirin (Aspirin 325 MG) 325 MG TAB 325 MG PO DAILY (Reported) Lisinopril (Zestril 5 MG) 5 MG TAB 5 MG PO DAILY (Reported) Metoprolol Tartrate (Lopressor 50 MG) 50 MG TAB 50 MG PO BID (Reported) Simvastatin 20 MG TAB 20 MG PO DAILY (Reported) Spironolactone (Aldactone) 25 MG TAB 25 MG PO DAILY (Reported) Physical Exam Vital Signs / I&Os Vital Signs Date Time Temp Pulse Resp B/P Pulse O2 O2 Flow FiO2 Ox Delivery Rate 09/20 0552 98.8 67 20 126/65 98 Room Air 09/20 0517 98.8 112 22 113/78 95 Room Air 09/20 0421 103 22 104/75 94 Room Air 09/20 0310 60 20 120/91 94 Room Air 09/20 0215 98.6 125 22 110/72 93 Room Air 09/20 0110 121 20 124/82 95 Room Air 09/20 0010 97 15 112/79 93 Room Air 09/19 2310 103 17 116/80 95 Room Air 09/19 2259 98.8 09/19 2210 90 16 112/85 95 Room Air 09/19 2100 119 18 130/94 96 Room Air 09/19 2000 114 18 116/75 95 Room Air 09/19 1900 98.6 93 20 104/85 96 Room Air 09/19 1800 95 25 102/74 97 09/19 1700 126 20 116/91 98 09/19 1610 98 20 114/86 98 09/19 1500 110 20 117/81 97 09/19 1446 97.9 111 21 117/70 97 I&O 09/20 0000 09/19 1600 09/19 0800 Intake Total 966 153 Output Total 650 490 Balance 316 -337 General Appearance Alert, Oriented X3, Cooperative, No acute distress Lungs Normal air movement, rales present in bases bilaterally Cardiovascular Normal S1 and S2, irregular rhythm, mild tachycardia, S3 present Abdomen Normal bowel sounds, Soft, No tenderness Extremities No cyanosis, No clubbing, No edema Neurological Cranial nerves intact, No lateralizing signs Psych/Mental Status Mental status normal, Mood normal LAB Results Laboratory Tests 09/20 09/20 09/20 09/20 09/19 0515 0515 0508 0118 2108 Chemistry Plasma Sodium (136 - 145 mmol/L) 141 Plasma Potassium (3.5 - 5.1 mmol/L) 4.8 Plasma Chloride (98 - 107 mmol/L) 107 CO2 (Enzymatic) (21 - 32 mmol/L) 26 BUN (7 - 18 mg/dL) 14 Creatinine (0.6 - 1.3 mg/dL) 1.2 Est GFR ( Amer) (mL/min) >60 Est GFR (Non-Af Amer) (mL/min) >60 Glucose (70 - 110 mg/dL) 115 Hemoglobin A1c % (4.5 - 6.2 %) 6.0 Plasma Calcium (8.5 - 10.1 mg/dL) 8.4 Total Bilirubin (0.0 - 1.0 mg/dL) 2.5 AST (15 - 37 U/L) 21 ALT (12 - 78 U/L) 42 Alkaline Phosphatase (46 - 116 U/L) 78 Troponin (0.00 - 1.5 ng/mL) Cancelled <0.05 Cancelled Total Protein (6.4 - 8.2 g/dL) 6.0 Albumin (3.3 - 5.0 g/dL) 3.2 09/19 09/19 09/19 09/19 1710 0918 0918 0918 Chemistry Plasma Sodium (136 - 145 mmol/L) 139 Plasma Potassium (3.5 - 5.1 mmol/L) 4.6 Plasma Chloride (98 - 107 mmol/L) 105 CO2 (Enzymatic) (21 - 32 mmol/L) 23 BUN (7 - 18 mg/dL) 15 Creatinine (0.6 - 1.3 mg/dL) 1.0 Est GFR ( Amer) (mL/min) >60 Est GFR (Non-Af Amer) (mL/min) >60 Glucose (70 - 110 mg/dL) 130 Plasma Calcium (8.5 - 10.1 mg/dL) 8.1 Plasma Magnesium (1.8 - 2.4 mg/dL) 1.9 Total Bilirubin (0.0 - 1.0 mg/dL) 2.1 AST (15 - 37 U/L) 33 ALT (12 - 78 U/L) 50 Alkaline Phosphatase (46 - 116 U/L) 86 Creatine Kinase (24 - 260 U/L) 258 Troponin (0.00 - 1.5 ng/mL) <0.05 <0.05 B-Natriuretic Peptide (5 - 100 pg/ml) 173 Total Protein (6.4 - 8.2 g/dL) 6.2 Albumin (3.3 - 5.0 g/dL) 3.4 TSH 3rd Generation (0.30 - 3.74 uIU/mL) 1.263 Coagulation INR (0.8 - 1.2) 1.0 APTT (24 - 34 SECONDS) 32 D-Dimer, Quantitative (0.27 - 0.52 ug/mLFEU) < 0.27 Hematology WBC (4.5 - 11.5 K/uL) 6.9 RBC (4.50 - 5.90 M/uL) 4.97 Hgb (13.5 - 17.5 gm/dL) 15.3 Hct (41.0 - 53.0 %) 46.6 MCV (80 - 100 fL) 94 MCH (26 - 34 pg) 31 RDW (11.6 - 14.8 %) 13.5 Neut % (Auto) (50 - 75 %) 62.1 Lymph % (Auto) (25 - 40 %) 31.0 [place] % (Auto) (3 - 14 %) 4.3 Eos % (Auto) (0 - 4 %) 2.0 Baso % (Auto) (0 - 2 %) 0.6 Plt Count, EDTA (150 - 400 K/uL) 263 PUBS MCHC (31 - 37 g/dL) 33 Imaging Echocardiogram-pending Assessment and Plan Problem List 1. Atrial fibrillation with rapid ventricular response Plan -Patient has persistent mild tachycardia -Increase Lopressor to 50 mg by mouth every 6 hours -May require additional agent -Monitor 2. Hypertension Status Chronic Onset Date Unknown Plan -Blood pressure well controlled -Monitor -Low-salt diet 3. Viral cardiomyopathy Status Chronic Onset Date 09/13 Plan -Stable -Check echocardiogram today -Continue CINTHIA inhibitor, Aldactone, beta blockers -No signs of CHF at this time 4. Hyperlipidemia Status Chronic Onset Date Unknown Plan -Continue Lipitor 5. Hyperglycemia Status Acute Onset Date Unknown Plan -Mild -Hemoglobin A1c 6.0 -Monitor Current status: Fair, stable Anticipated discharge date: Anticipated discharge this p.m. or in a.m. Anticipated discharge placement: Home Patient care time: Time in chart review, patient interview, physical exam, CPOE, and care documentation: 25 mins Visit to patient today: 1 Complexity of care: Moderate DVT prophylaxis: Eliquis E&M Codes Rounding: Inpt-Moderate/[id number]
--- NOTE | 2016-09-20 15:44 | DIAGNOSTIC IMAGING REPORT ---
REFERRING PHYSICIAN/PROVIDER: Alex Kam MD [employer] OPERATOR: Fracisco Tyler MD PROCEDURE: 2D echo, M-mode and complete color and flow Doppler interrogation TECHNICAL QUALITY: Adequate INDICATION: CHF, Viral Cardiomyopathy, afib INTERPRETATIONS: CHAMBERS: LEFT ATRIUM: Mildly enlarged with AP diameter 4.7 cm LEFT VENTRICLE: Mildly enlarged with end-diastolic diameter of 5.7 cm. Severe LV systolic dysfunction, estimated LVEF 20%. Diastolic function indeterminate because of underlying atrial fibrillation RIGHT ATRIUM: Normal size RIGHT VENTRICLE: Normal size and function VALVES: All valves nonrheumatic unless otherwise indicated. AORTIC VALVE: No significant aortic stenosis or regurgitation MITRAL VALVE: 2+ laterally directed mitral regurgitation best seen on the apical four-chamber view TRICUSPID VALVE: Trace tricuspid regurgitation PULMONIC VALVE: Trace pulmonic regurgitation MISCELLANEOUS: atrial fibrillation, no pericardial effusion, the ascending aortic size normal at 3.0 cm HEMODYNAMICS: RVSP estimated at 25 mmHg IMPRESSION: 1. Atrial fibrillation. Severe LV systolic dysfunction, estimated LVEF 20%. Moderate mitral regurgitation. Normal pulmonary artery pressures. Other findings outlined above.
[2016-09-21] VITALS (26 sets, daily range): BP systolic 87–126; BP diastolic 39–85
--- NOTE | 2016-09-21 07:09 | Progress Note ---
Subjective General Note Date: September 21, 2016 Admission Date: September 19, 2016 Hospital Day: 3 PCP: Dr. Hannah Status: Inpatient, CCU Advanced Directive: FULL CODE Room: 304 Admission History: The patient is a 60-year-old white male with a significant past medical history of viral cardiomyopathy, paroxysmal atrial fibrillation, hypertension, hyperlipidemia, who presented to [facility] emergency department on the day of admission secondary to complaints of shortness of breath, chest pain, and palpitations. [facility] ER evaluation was consistent with atrial fibrillation with rapid ventricular response, questionable early CHF. Secondary to the above, the patient was admitted by Alex Kam M.D. for further evaluation and treatment. For other history present illness, past medical history, family history, social history, review of systems, and admission physical examination please see the patient's history and physical examination and ER visit note in the patient's medical record. Subjective: The patient states he is doing better this a.m. than last p.m. He experienced episode of shortness of breath chest heaviness and anxiety. Patient requests: None Medications and Allergies Medications Current Medications Sig/Zac Start time Last Medication Dose Route Stop Time Status Admin Guaifenesin/ 10 ML Q4H PRN 09/20 1430 AC 09/20 Dextromethorphan PO 2111 Diltiazem HCl 30 MG Q6H 09/20 1345 AC 09/21 PO 0331 Lisinopril 5 MG DAILY 09/20 0900 AC 09/20 PO 0819 Spironolactone 25 MG DAILY 09/20 0900 AC 09/20 PO 0819 Metoprolol Tartrate 50 MG Q6HR 09/20 0730 AC 09/21 PO 0517 Apixaban 5 MG BID 09/19 2100 AC 09/20 PO 2110 Acetaminophen 650 MG Q4H PRN 09/19 1315 AC 09/21 PO 0511 Al Hydrox/Mg Hydrox/ 15 ML Q1H PRN 09/19 1315 AC Simethicone PO Atropine Sulfate 0.5 MG Q3MIN PRN 09/19 1315 AC IV Lidocaine HCl See Dose ONCE PRN 09/19 1315 AC Insts (1) IV Magnesium Hydroxide 10 ML DAILY PRN 09/19 1315 AC PO Metoprolol Tartrate 5 MG Q3H PRN 09/19 1315 AC 09/20 IV 1930 Morphine Sulfate 2 MG Q3M PRN 09/19 1315 AC IV Nitroglycerin 0.4 MG Q5M PRN 09/19 1315 AC SL Ondansetron HCl 4 MG Q6H PRN 09/19 1315 AC 09/21 IV 0120 Pantoprazole Sodium 40 MG DAILY@0600 09/19 1315 09/21 Sesquihydrate PO 0517 Dose Instructions: (1)Lidocaine HCl: 1.5 MG/KG Allergies Coded Allergies: No Known Drug Allergy (09/19/16) Reconcile Medications Scheduled Medications Aspirin (Aspirin 325 MG) 325 MG TAB 325 MG PO DAILY (Reported) Lisinopril (Zestril 5 MG) 5 MG TAB 5 MG PO DAILY (Reported) Metoprolol Tartrate (Lopressor 50 MG) 50 MG TAB 50 MG PO BID (Reported) Simvastatin 20 MG TAB 20 MG PO DAILY (Reported) Spironolactone (Aldactone) 25 MG TAB 25 MG PO DAILY (Reported) Physical Exam Vital Signs / I&Os Vital Signs Date Time Temp Pulse Resp B/P Pulse O2 O2 Flow FiO2 Ox Delivery Rate 09/21 0624 98.6 67 20 102/74 91 Nasal 3.0 Cannula 09/21 0551 99 20 107/82 93 Nasal 3.0 Cannula 09/21 0532 105 20 118/77 92 Nasal 3.0 Cannula 09/21 0517 98.6 114 22 120/73 94 Nasal 3.0 Cannula 09/21 0502 3.0 09/21 0421 120 22 126/82 93 Nasal 3.0 Cannula 09/21 0314 128 22 109/84 91 Nasal 2.0 Cannula 09/21 0212 99.9 107 22 121/85 94 Nasal 2.0 Cannula 09/21 0110 20 111/83 94 Room Air 09/21 0028 109 18 107/59 94 Room Air 09/20 2310 105 16 114/61 96 Room Air 09/20 2225 98.8 102 16 98/68 96 Room Air 09/20 2100 99.3 124 16 117/66 94 Room Air 09/20 2045 Room Air 09/20 2000 99.5 110 16 100/53 94 Room Air 09/20 1900 99.5 115 16 104/65 94 Room Air 09/20 1802 99.9 106 16 110/53 96 Room Air 09/20 1700 98.2 101 16 107/63 98 Room Air 09/20 1600 103 20 102/57 95 Room Air 09/20 1500 99.1 99 20 109/72 95 Room Air 09/20 1404 105/56 09/20 1403 98.4 110 20 95 Room Air 09/20 1300 117 21 101/52 95 Room Air 09/20 1136 98.4 152 22 109/71 97 Room Air 09/20 1109 101 19 107/73 100 Room Air 09/20 0934 99 20 104/84 100 Room Air 09/20 0827 117 20 119/69 97 Room Air 09/20 0731 98.8 97 20 102/70 95 Room Air I&O 09/21 0000 09/20 1600 09/20 0800 Intake Total 480 480 312 Output Total 250 1500 Balance 230 -1020 312 General Appearance Alert, Oriented X3, Cooperative, No acute distress Lungs Minimal basilar crackles Cardiovascular Normal S1 and S2, irregular rhythm, mild tachycardia Abdomen Normal bowel sounds, Soft, No tenderness Extremities No cyanosis, No clubbing, No edema Neurological Cranial nerves intact, Strength 5/5 x4 ext's, No lateralizing signs Psych/Mental Status Mental status normal, Mood normal LAB Results Laboratory Tests 09/21 09/21 09/21 09/20 0500 0215 0215 0940 Chemistry Plasma Sodium (136 - 145 mmol/L) 133 132 Plasma Potassium (3.5 - 5.1 mmol/L) 4.2 4.1 Plasma Chloride (98 - 107 mmol/L) 99 99 CO2 (Enzymatic) (21 - 32 mmol/L) 25 23 BUN (7 - 18 mg/dL) 15 16 Creatinine (0.6 - 1.3 mg/dL) 1.2 1.2 Est GFR ( Amer) (mL/min) >60 >60 Est GFR (Non-Af Amer) (mL/min) >60 >60 Glucose (70 - 110 mg/dL) 138 141 Plasma Calcium (8.5 - 10.1 mg/dL) 8.3 8.4 Plasma Magnesium (1.8 - 2.4 mg/dL) 1.7 Total Bilirubin (0.0 - 1.0 mg/dL) 2.9 AST (15 - 37 U/L) 32 ALT (12 - 78 U/L) 47 Alkaline Phosphatase (46 - 116 U/L) 86 Creatine Kinase (24 - 260 U/L) 678 CK-MB (CK-2) (0.5 - 3.2 ng/mL) 1.3 CK/CKMB % Calc (0.0 - 4.0 %) 0.2 Troponin (0.00 - 1.5 ng/mL) <0.05 <0.05 B-Natriuretic Peptide (5 - 100 pg/ml) 338 Total Protein (6.4 - 8.2 g/dL) 6.4 Albumin (3.3 - 5.0 g/dL) 3.3 Hematology WBC (4.5 - 11.5 K/uL) 11.0 RBC (4.50 - 5.90 M/uL) 4.99 Hgb (13.5 - 17.5 gm/dL) 15.5 Hct (41.0 - 53.0 %) 47.0 MCV (80 - 100 fL) 94 MCH (26 - 34 pg) 31 RDW (11.6 - 14.8 %) 13.5 Neut % (Auto) (50 - 75 %) 82 Lymph % (Auto) (25 - 40 %) 13 [place] % (Auto) (3 - 14 %) 3 Eos % (Auto) (0 - 4 %) 2 Baso % (Auto) (0 - 2 %) 0 Band Neutrophils % (0 - 8 %) 0 Metamyelocytes % (0 - 1 %) 0 Myelocytes (0 - 1 %) 0 Other Cell Type 0 Plt Count, EDTA (150 - 400 K/uL) 257 PUBS MCHC (31 - 37 g/dL) 33 Assessment and Plan Problem List 1. Atrial fibrillation with rapid ventricular response Plan -Patient experienced ongoing tachycardia. -Placed on Cardizem drip last night. -Increase Cardizem to 60 mg by mouth every 6 hours and Lopressor 50 mg by mouth every 6 hours -Wean Cardizem drip as appropriate -Possible discharge in a.m. if rate controlled 2. Hypertension Status Chronic Onset Date Unknown Plan -Well-controlled -Continue present medical regimen 3. Viral cardiomyopathy Status Chronic Onset Date 09/13 Plan -Patient with history of viral cardiomyopathy -Echocardiogram shows atrial fibrillation with severe left ventricular systolic dysfunction with estimated ejection fraction 20%. -Continue medical regimen as noted above -Continue lisinopril, Lasix, Aldactone, and beta lyla. -Monitor 4. Hyperlipidemia Status Chronic Onset Date Unknown Plan -Stable -Continue present medical therapy 5. Chronic anticoagulation Status Acute Onset Date Unknown Plan -Patient has been placed on anticoagulation with Eliquis -Chads score indicates need for ongoing anticoagulation -Risk and benefits of use of Eliquis discussed with patient prior to initiation of therapy. Patient accepting the risk and benefits. 6. Hyperglycemia Status Acute Onset Date Unknown Plan -Mild hyperglycemia -Monitor -Probable stress-related Current status: Fair, unstable Anticipated discharge date: Anticipated discharge in 1-2 days Anticipated discharge placement: Home Patient care time: Time in chart review, patient interview, physical exam, CPOE, and care documentation: 35 mins Visit to patient today: 1 Complexity of care: High DVT prophylaxis: Eliquis E&M Codes Rounding: Inpt-High/[id number]
--- NOTE | 2016-09-21 09:14 | DIAGNOSTIC IMAGING REPORT ---
PROCEDURE: XR CHEST 1 VIEW INDICATION: chf, afib TECHNIQUE: Portable AP view 07:56 a.m. COMPARISON: Chest x-ray 09/19/2016. FINDINGS: Mild cardiomegaly with improved pulmonary vascular congestion and bibasilar pulmonary edema. No effusion. Bony thorax is unremarkable. IMPRESSION: 1. Improved CHF and pulmonary edema .
[2016-09-22] VITALS (19 sets, daily range): BP systolic 90–123; BP diastolic 38–82
--- NOTE | 2016-09-22 07:10 | Progress Note ---
Subjective General Note Date: September 22, 2016 Admission Date: September 19, 2016 Hospital Day: 4 PCP: Dr. Hannah Status: Inpatient, CCU Advanced Directive: FULL CODE Room: 304 Admission History: The patient is a 60-year-old white male with a significant past medical history of viral cardiomyopathy, paroxysmal atrial fibrillation, hypertension, hyperlipidemia, who presented to [facility] emergency department on the day of admission secondary to complaints of shortness of breath, chest pain, and palpitations. [facility] ER evaluation was consistent with atrial fibrillation with rapid ventricular response, questionable early CHF. Secondary to the above, the patient was admitted by Alex Kam M.D. for further evaluation and treatment. For other history present illness, past medical history, family history, social history, review of systems, and admission physical examination please see the patient's history and physical examination and ER visit note in the patient's medical record. Subjective: The patient states he is doing well today. Shortness of breath improved. Off oxygen. Ambulating without difficulty. Patient requests: No specific Medications and Allergies Medications Current Medications Sig/Zac Start time Last Medication Dose Route Stop Time Status Admin Diltiazem HCl 240 MG DAILY 09/24 1999 AC PO Lorazepam 0.5 MG QHS PRN 09/21 2300 AC 09/22 PO 0102 Guaifenesin/ 10 ML Q4H PRN 09/20 1430 AC 09/22 Dextromethorphan PO 0935 Lisinopril 5 MG DAILY 09/20 0900 AC 09/22 PO 0843 Spironolactone 25 MG DAILY 09/20 0900 AC 09/22 PO 0843 Metoprolol Tartrate 50 MG Q6HR 09/20 0730 AC 09/22 PO 1242 Apixaban 5 MG BID 09/19 2100 AC 09/22 PO 0843 Acetaminophen 650 MG Q4H PRN 09/19 1315 AC 09/21 PO 0511 Al Hydrox/Mg Hydrox/ 15 ML Q1H PRN 09/19 1315 AC Simethicone PO Atropine Sulfate 0.5 MG Q3MIN PRN 09/19 1315 AC IV Lidocaine HCl See Dose ONCE PRN 09/19 1315 AC Insts (1) IV Magnesium Hydroxide 10 ML DAILY PRN 09/19 1315 AC 09/22 PO 1412 Metoprolol Tartrate 5 MG Q3H PRN 09/19 1315 AC 09/20 IV 1930 Morphine Sulfate 2 MG Q3M PRN 09/19 1315 AC IV Nitroglycerin 0.4 MG Q5M PRN 09/19 1315 AC SL Ondansetron HCl 4 MG Q6H PRN 09/19 1315 AC 09/21 IV 1419 Pantoprazole Sodium 40 MG DAILY@0600 09/19 1315 AC 09/22 Sesquihydrate PO 0625 Dose Instructions: (1)Lidocaine HCl: 1.5 MG/KG Allergies Coded Allergies: No Known Drug Allergy (09/19/16) Reconcile Medications Scheduled Medications Aspirin (Aspirin 325 MG) 325 MG TAB 325 MG PO DAILY (Reported) Lisinopril (Zestril 5 MG) 5 MG TAB 5 MG PO DAILY (Reported) Metoprolol Tartrate (Lopressor 50 MG) 50 MG TAB 50 MG PO BID (Reported) Simvastatin 20 MG TAB 20 MG PO DAILY (Reported) Spironolactone (Aldactone) 25 MG TAB 25 MG PO DAILY (Reported) Physical Exam Vital Signs / I&Os Vital Signs Date Time Temp Pulse Resp B/P Pulse O2 O2 Flow FiO2 Ox Delivery Rate 09/22 0605 98.8 84 18 111/71 96 Nasal 2.0 Cannula 09/22 0500 99.0 82 16 102/75 95 Nasal 2.0 Cannula 09/22 0400 81 16 102/75 92 Nasal Cannula 09/22 0300 66 103/72 93 Nasal 2.0 Cannula 09/22 0200 99.0 80 16 123/38 93 Nasal 2.0 Cannula 09/22 0100 94 108/71 95 09/22 0056 99.0 09/22 0000 78 15 111/77 96 09/21 2300 84 16 105/83 95 09/21 2211 98.4 70 18 111/79 92 Nasal 2.0 Cannula 09/21 2100 98.4 94 18 115/75 96 Nasal 2.0 Cannula 09/21 2030 Nasal 2.0 Cannula 09/21 2000 98.6 89 18 113/78 94 Nasal 2.0 Cannula 09/21 1900 99.0 103 18 115/74 92 Nasal 2.0 Cannula 09/21 1800 89 18 117/64 93 Nasal 2.0 Cannula 09/21 1700 97.7 82 18 104/78 91 Nasal 2.0 Cannula 09/21 1600 85 18 126/73 100 Nasal 2.0 Cannula 09/21 1500 85 18 105/70 100 Nasal 2.0 Cannula 09/21 1421 99.0 67 18 95/60 94 Nasal 2.0 Cannula 09/21 1300 99 18 101/74 92 Nasal 2.5 Cannula 09/21 1200 99 20 99/60 91 Nasal 2.5 Cannula 09/21 1100 93 20 122/73 93 Nasal 2.5 Cannula 09/21 1000 98.2 93 20 110/79 94 Nasal 2.0 Cannula 09/21 0914 96 18 118/77 97 Nasal 3.0 Cannula 09/21 0852 3.0 09/21 0830 2.0 09/21 0800 105 20 114/84 94 Nasal 3.0 Cannula I&O 09/22 0000 09/21 1600 09/21 0800 Intake Total 500 555 720 Output Total 350 150 Balance 500 205 570 General Appearance Alert, Oriented X3, Cooperative, No acute distress Lungs Normal air movement, minimal basilar crackles-improved Cardiovascular Normal S1 and S2, irregular rhythm, rate controlled Abdomen Normal bowel sounds, Soft, No tenderness Extremities No cyanosis, No clubbing, No edema Neurological Cranial nerves intact, No lateralizing signs Psych/Mental Status Mental status normal, Mood normal LAB Results Laboratory Tests 09/22 0544 Chemistry Plasma Sodium (136 - 145 mmol/L) 132 Plasma Potassium (3.5 - 5.1 mmol/L) 4.6 Plasma Chloride (98 - 107 mmol/L) 98 CO2 (Enzymatic) (21 - 32 mmol/L) 27 BUN (7 - 18 mg/dL) 20 Creatinine (0.6 - 1.3 mg/dL) 1.1 Est GFR ( Amer) (mL/min) >60 Est GFR (Non-Af Amer) (mL/min) >60 Glucose (70 - 110 mg/dL) 108 Plasma Calcium (8.5 - 10.1 mg/dL) 8.4 Plasma Magnesium (1.8 - 2.4 mg/dL) 2.2 Assessment and Plan Problem List 1. Atrial fibrillation with rapid ventricular response Plan -Rate controlled on Cardizem/Lopressor -Case discussed with Dr. Eduardo Tompkins (cardiology) -Dr. [place] recommends continued Cardizem, Lopressor with anticoagulation. Recommends follow-up with recreational sports director next week. Continue CINTHIA inhibitor, Aldactone, Lasix, and statin. -Switched to long-acting beta lyla/Cardizem -Discharge in a.m. if stable 2. Hypertension Status Chronic Onset Date Unknown Plan -Blood pressure well controlled to a low -Slightly unstable -Monitor closely in setting of switched to long-acting metoprolol and diltiazem 3. Viral cardiomyopathy Status Chronic Onset Date 09/13 Plan -See above -Chest x-ray improved with decreased pulmonary congestion -Mild elevation of BNP overall improved status -Continue lisinopril, Aldactone, Lasix, and metoprolol 4. Hyperlipidemia Status Chronic Onset Date Unknown Plan -Stable -Continue outpatient medical regimen 5. Hyperglycemia Status Acute Onset Date Unknown Plan -Resolved 6. Chronic anticoagulation Status Acute Onset Date Unknown Plan -Continue Eliquis Current status: Fair, improved Anticipated discharge date: Today Anticipated discharge placement: [Home] Patient care time: Time in chart review, patient interview, physical exam, CPOE, and care documentation: 35 mins Visit to patient today: 2 Complexity of care: High DVT prophylaxis: Eliquis E&M Codes Rounding: Inpt-High/[id number]
[2016-09-23 00:35] VITALS: BP 110/81
[2016-09-23 05:36] VITALS: BP 101/66
[2016-09-23 06:58] VITALS: BP 98/71
--- NOTE | 2016-09-23 07:52 | Discharge Summary ---
Discharge Summary Report Admit Date 09/19/16 Discharge Date 09/23/16 Admission Diagnosis 1. Atrial fibrillation with rapid ventricular response 2. CHF 3. Viral cardiomyopathy 4. Hypertension 5. Hyperlipidemia Discharge Diagnosis 1. Atrial fibrillation with rapid ventricular response 2. CHF 3. Viral cardiomyopathy 4. Hypertension 5. Hyperlipidemia Brief History The patient is a 60-year-old white male with a significant past medical history of viral cardiomyopathy, paroxysmal atrial fibrillation, hypertension, hyperlipidemia, who presented to [facility] emergency department on the day of admission secondary to complaints of shortness of breath, chest pain, and palpitations. [facility] ER evaluation was consistent with atrial fibrillation with rapid ventricular response, questionable early CHF. Secondary to the above, the patient was admitted by Alex Kam M.D. for further evaluation and treatment. For other history present illness, past medical history, family history, social history, review of systems, and admission physical examination please see the patient's history and physical examination and ER visit note in the patient's medical record. Hospital Course The following problems and their management were noted during the patient's hospitalization: 1. Atrial fibrillation with rapid ventricular response The patient presented with findings of atrial fibrillation with rapid ventricular response. The patient was treated with beta lyla and calcium channel lyla. Rate was well-controlled with Cardizem CD 240 mg by mouth daily and Toprol-XL 75 mg by mouth twice a day. The patient was placed on anticoagulation with Eliquis 5 mg by mouth twice a day. Echocardiogram showed diffuse LV dysfunction with ejection fraction of 20%. The patient was discussed with cardiology (Eduardo Tompkins M.D.) who recommended above treatment plan with follow-up with cardiology as outpatient. The patient's heart rate was well- controlled on discharge. He was up ambulating well without problems. He required no supplemental oxygen on discharge. There were no signs of CHF at the time of discharge. 2. CHF The patient had findings of CHF on initial presentation. These resolved during the patient's hospitalization. He was treated with CINTHIA inhibitor, Aldactone, beta lyla with good control symptoms. 3. Viral cardiomyopathy The patient has a known history of viral cardiomyopathy. No further evaluation was undertaken. 4. Hypertension The patient has a history of hypertension. This was not problematic during his hospitalization. Low-salt diet and discharge. See discharge medications. 5. Hyperlipidemia No further evaluation undertaken during the patient's hospitalization. Continue pre-hospitalizations statin therapy General Appearance Alert, Oriented X3, Cooperative, No acute distress Psych/Mental Status Mental status NL, Mood NL Discharge Instructions/Meds For other recommendations regarding discharge diet, activity, followup, and discharge medications please see the patient's discharge instructions. Discharge condition: Fair, improved Greater than 30 min. was spent in the patient's discharge preparation including discharge interview and physical examination, progress note, discharge instructions, and discharge summary The patient was interviewed and examined on the day of discharge. E&M Codes Discharge: Inpt >30 min spent/[id number]
[2016-09-23 10:14] VITALS: BP 114/59
[2016-09-23] MEDS ORDERED: CARDIZEM LA240 MG PO (11:01)
[2016-09-23] MEDS ORDERED: ELIQUIS5 MG PO (11:01)
[2016-09-23] MEDS ORDERED: TOPROL XL50 MG PO (11:02)
--- NOTE | 2016-09-23 11:05 | Provider's Discharge Care Plan ---
Problem, Goal, Plan Problem List 1. Atrial fibrillation with rapid ventricular response Goals: Improve disease control, Prevent disease progress Instructions: Follow up as directed, Take meds as directed 2. Chronic anticoagulation Goals: Improve disease control, Prevent disease progress Instructions: Follow up as directed, Take meds as directed
[2016-09-23 14:20] VITALS: BP 105/64
== END 2016-09-23 15:25 | disposition home or self-care (01) | DRG 308 ==
LOC: ED SRH 08:55 → CC SRH 12:23 → TRANS SRH 12:23 → CC SRH 14:45
PROVIDERS: ADMIT Family Medicine
DX: I48.0 Paroxysmal atrial fibrillation (principal); I11.0 Hypertensive heart disease with heart failure; I50.23 Acute on chronic systolic (congestive) heart failure; B33.24 Viral cardiomyopathy; E78.5 Hyperlipidemia, unspecified; R73.9 Hyperglycemia, unspecified
CPT/HCPCS: 90047; 90074; 90098; 90100; 90616; 90617; 91286; 91320; 91556; 91643; 91672; 92132; 92610; 92710; 92720; 93140; 94001; 94060; 95059